=== PATIENT | female | born 1985 | race Caucasian/White ===

== ENCOUNTER 2020-08-16 09:28 | Outpatient (REF) | payer BC, SELFPAY ==
--- NOTE | ~2020-08-16 | CT_ITS ---
EXAMINATION: CT HEAD WITHOUT CONTRAST CLINICAL INFORMATION: Headache COMPARISON: CT brain 05/27/2017 TECHNIQUE: Contiguous axial imaging was performed from the skull base to vertex without intravenous administration of contrast. This CT examination was performed using dose optimization techniques as appropriate, variously including the following: *Automated exposure control *Adjustment of mA and/or kV according to patient size (this includes techniques or standardized protocols for targeted exams where dose is matched to indication/reason for exam; i.e. extremities or head) *Use of iterative reconstruction technique DLP: 734 mGy-cm FINDINGS: There is no evidence of acute intracranial hemorrhage or territorial infarction. No abnormal mass effect or midline shift is seen. Hand to white matter differentiation is well preserved. No extra-axial fluid collections are identified. The ventricles are normal in size. There is no abnormal attenuation within the brain parenchyma. The osseous structures and soft tissues are normal. The mastoid air cells and visualized portions of the paranasal sinuses are well aerated. CT/CT head/brain wo con IMPRESSION: No acute intracranial process seen.
== END 2020-08-16 09:29 | disposition home or self-care (01) ==
LOC: HO.CT 09:28
PROVIDERS: PCP Nurse Practitioner Family; Visit Provider Nurse Practitioner Family
DX: H53.8 Other visual disturbances (principal); R51.9 Headache, unspecified; Z82.49 Family history of ischemic heart disease and other diseases of the circulatory system
CPT/HCPCS: 70450

== ENCOUNTER 2021-02-15 11:58 | Outpatient (REF) | payer BC, SELFPAY ==
[2021-02-15 13:46] LABS: MANUAL DIFF FLAG NO
[2021-02-15 13:48] LABS: Basophils Absolute Auto 0.1 X10*3/uL (0.0-0.2); Basophils Percent Auto 0.5 % (0-2); Eosinophils Absolute Auto 0.3 X10*3/uL (0.0-0.4); Eosinophils Percent Auto 3.2 % (0-4); Hematocrit 40.1 % (37.0-47.0); Hemoglobin 13.7 g/dl (12.0-16.0); Imm Gran Abs Auto 0.02 X10*3/uL (0.00-0.03); Imm Gran Pct Auto 0.2 % (0.0-0.4); Lymphocytes Absolute Auto 2.2 X10*3/uL (1.2-4.9); Mean Corpuscular HGB Conc 34.2 g/dl (31.0-35.0); Mean Corpuscular Hemoglobin 30.3 pg (27.0-33.0); Mean Corpuscular Volume 88.7 fL (80.0-98.0); Mean Platelet Volume 9.9 fL (9.4-12.3); Monocytes Absolute Auto 0.7 X10*3/uL (0.1-1.2); Monocytes Percent Auto 6.4 % (2-11); Neutrophils Absolute Auto 6.83 x10*3/uL (2.0-8.3); Neutrophils Percent Auto 67.7 % (45-73); Platelet Count 356 X10*3/uL (160-400); Red Blood Count 4.52 X10*6/uL (4.20-5.50); Red Cell Distribution Width 11.9 % (11.0-16.0); White Blood Count 10.1 X10*3/uL (4.8-10.8)
[2021-02-15 14:30] LABS: Alanine Aminotransferase 22 U/L (0-31); Albumin Level 4.3 g/dL (3.5-5.0); Alkaline Phosphatase 64 U/L (39-117); Anion Gap 11 (12-20); Aspartate Amino Transferase 17 U/L (5-31); Bilirubin Total 0.2 mg/dL (0.0-1.0); Blood Urea Nitrogen 11 mg/dL (9-16); Carbon Dioxide 26 mmol/L (22-29); Chloride 106 mmol/L (96-108); Cholesterol 186 mg/dL; Estimated Glomerular Filt Rate > 60; Glucose Fasting 92 mg/dL (60-99); HDL Cholesterol 46 mg/dL; LDL Cholesterol Calculated 115 mg/dl; Potassium 4.3 mmol/L (3.3-5.1); Sodium 139 mmol/L (135-145); Triglycerides 129 mg/dL
[2021-02-15 14:51] LABS: TSH reflex Free T4 1.45 uIU/mL (0.32-4.0)
[2021-02-16 09:17] LABS: Lyme Abs Screen <0.90 index
[2021-02-20 12:46] LABS: Vitamin D 25-OH, D2 <4 ng/mL; Vitamin D 25-OH, D3 21 ng/mL; Vitamin D 25-OH, Total 21 ng/mL (30-100)
== END 2021-02-15 11:59 | disposition home or self-care (01) ==
LOC: HO.WFDLDS 11:58
PROVIDERS: PCP Nurse Practitioner Family; Visit Provider Nurse Practitioner Family
DX: Z00.00 Encounter for general adult medical examination without abnormal findings (principal); T14.8XXA Other injury of unspecified body region, initial encounter; W57.XXXA Bitten or stung by nonvenomous insect and other nonvenomous arthropods, initial encounter
CPT/HCPCS: 36415; 80053; 80061; 82306; 84443; 85025; 86617; 86618

== ENCOUNTER 2021-03-06 11:37 | Outpatient (REF) | payer BC, SELFPAY ==
[2021-03-06 15:01] LABS: Appearance Urine CLEAR; Color Urine YELLOW; Glucose Urine UA NEG (NEG); Leukocyte Esterase Urine 3+ (NEG); Nitrite Urine NEG (NEG); PH 8.5 (5.0-8.0); Specific Gravity - Urine >= 1.030 (1.005-1.025); Urine Blood 3+ (NEG); Urine Ketones NEG (NEG)
[2021-03-06 15:02] LABS: Urine Protein 1+ MG/DL (NEG-TRACE)
[2021-03-06 15:05] LABS: Bacteria Urine 1+ /LPF; Squamous Epithelial Cell Urine 1+ /LPF
[2021-03-07 09:21] LABS: BV Int Neg Control Negative (Negative); BV Int Pos Control Positive (Positive)
== END 2021-03-06 11:38 | disposition home or self-care (01) ==
LOC: HO.WFDLDS 11:37
PROVIDERS: Visit Provider Nurse Practitioner Family
DX: R30.0 Dysuria (principal)
CPT/HCPCS: 81001; 87086; 87480; 87510; 87660

== ENCOUNTER 2021-03-16 10:35 | Outpatient (REF) | payer BC, SELFPAY ==
--- NOTE | ~2021-03-16 | US_ITS ---
EXAMINATION: US PELVIS CLINICAL INFORMATION: Pelvic and perineal pain. COMPARISON: None TECHNIQUE: Ultrasound of the pelvis is performed using both transabdominal and transvaginal transducers along with Doppler. Transvaginal imaging is performed due to inadequate visualization transabdominally. FINDINGS: Uterus: The uterus is anteverted, anteflexed and measures 7.9 cm in length, 3.2 cm in AP and 4.9 cm in transverse dimension. The double wall endometrial thickness is 0.86 cm. The uterus is smooth in contour and has normal myometrial echogenicity. No visible fibroid. Adnexa: Both ovaries are visualized. There is normal color flow to the adnexa. There is no ovarian torsion. There is no pelvic ascites or fluid collection. Right ovary measures 2.97 x 2.12 x 3.44 cm. Volume 11.34 mL Left ovary measures 3.07 x 1.29 x 2.97 cm. Volume 6.16 mL There is no free fluid in the cul-de-sac. US/US pelvic and transvaginal IMPRESSION: Unremarkable uterus and ovaries.
== END 2021-03-16 10:36 | disposition home or self-care (01) ==
LOC: HO.HMGCX 10:35
PROVIDERS: PCP Nurse Practitioner Family; Visit Provider Nurse Practitioner Family
DX: R10.2 Pelvic and perineal pain (principal)
CPT/HCPCS: 76830; 76856

== ENCOUNTER 2022-07-20 12:19 | Outpatient (REF) | payer BC, SELFPAY ==
[2022-07-20 13:36] LABS: MANUAL DIFF FLAG NO
[2022-07-20 13:40] LABS: Basophils Percent Auto 0.4 % (0-2); Eosinophils Absolute Auto 0.2 X10*3/uL (0.0-0.4); Eosinophils Percent Auto 1.7 % (0-4); Hematocrit 41.4 % (37.0-47.0); Hemoglobin 14.2 g/dl (12.0-16.0); Imm Gran Abs Auto 0.03 X10*3/uL (0.00-0.03); Imm Gran Pct Auto 0.3 % (0.0-0.4); Lymphocytes Absolute Auto 2.3 X10*3/uL (1.2-4.9); Mean Corpuscular HGB Conc 34.3 g/dl (31.0-35.0); Mean Corpuscular Hemoglobin 29.7 pg (27.0-33.0); Mean Corpuscular Volume 86.6 fL (80.0-98.0); Mean Platelet Volume 9.5 fL (9.4-12.3); Monocytes Absolute Auto 0.7 X10*3/uL (0.1-1.2); Monocytes Percent Auto 7.6 % (2-11); Neutrophils Absolute Auto 6.1 x10*3/uL (2.0-8.3); Platelet Count 357 X10*3/uL (160-400); Red Blood Count 4.78 X10*6/uL (4.20-5.50); White Blood Count 9.3 X10*3/uL (4.8-10.8)
[2022-07-20 14:12] LABS: Alanine Aminotransferase 66 U/L (0-31); Albumin Level 4.4 g/dL (3.5-5.0); Alkaline Phosphatase 68 U/L (39-117); Anion Gap 13 (12-20); Aspartate Amino Transferase 40 U/L (5-31); Bilirubin Total 0.7 mg/dL (0.0-1.0); Blood Urea Nitrogen 12 mg/dL (9-16); C Reactive Protein 1.13 mg/dL (< or = 0.50); Calcium 9.2 mg/dL (8.4-10.2); Carbon Dioxide 24 mmol/L (22-29); Chloride 106 mmol/L (96-108); Cholesterol 245 mg/dL; Estimated Glomerular Filt Rate > 60; Glucose Fasting 89 mg/dL (60-99); HDL Cholesterol 39 mg/dL; LDL Cholesterol Calculated 174 mg/dl; Potassium 4.1 mmol/L (3.3-5.1); Sodium 139 mmol/L (135-145); Triglycerides 162 mg/dL
[2022-07-20 14:28] LABS: TSH reflex Free T4 1.92 uIU/mL (0.32-4.0)
[2022-07-20 14:33] LABS: Erythrocyte Sedimentation Rate 14 MM/HR (0-20)
[2022-07-23 22:42] LABS: Transglutaminase Ab IgG 3.8 U/mL; Transglutaminase IgA <1.0 U/mL
[2022-07-26 14:47] LABS: Endomysial IgA Antibody Negative (Negative)
== END 2022-07-20 12:20 | disposition home or self-care (01) ==
LOC: HO.WFDLDS 12:19
PROVIDERS: Visit Provider Nurse Practitioner Family
DX: R19.8 Other specified symptoms and signs involving the digestive system and abdomen (principal); K21.9 Gastro-esophageal reflux disease without esophagitis; E78.5 Hyperlipidemia, unspecified; E66.9 Obesity, unspecified
CPT/HCPCS: 36415; 80053; 80061; 84443; 85025; 85652; 86140; 86231; 86364

== ENCOUNTER 2022-08-02 08:33 | Outpatient (REF) | payer BC, SELFPAY ==
--- NOTE | ~2022-08-02 | US_ITS ---
EXAMINATION: US ABDOMEN COMPLETE CLINICAL INFORMATION: Abnormal levels of other serum enzymes. COMPARISON: None available. TECHNIQUE: Real-time imaging of the abdominal viscera. FINDINGS: PANCREAS: Normal. ABDOMINAL AORTA: The proximal, mid, and distal segments are normal in caliber. INFERIOR VENA CAVA: Visualized portions are normal. LIVER: The liver is normal in size. The liver contour is normal. Increased parenchymal echogenicity. There is a 1.5 x 1.1 x 1.6 cm hypoechoic slightly heterogeneous lesion in the right hepatic lobe. There is no intrahepatic biliary duct dilatation seen. GALLBLADDER: Normal. The gallbladder is physiologically distended without evidence of stones, sludge, polyps, wall thickening or pericholecystic fluid. COMMON BILE DUCT: Normal in caliber measuring 0.3 cm in diameter. RIGHT KIDNEY: Normal. No hydronephrosis. No renal calculi or focal parenchymal lesions. The kidney measures 12.0 cm in maximum dimension. LEFT KIDNEY: Normal. No hydronephrosis. No renal calculi or focal parenchymal lesions. The kidney measures 11.8 cm in maximum dimension. SPLEEN: Mild splenomegaly measuring 13.3 cm in length. FREE FLUID: None. US/US abdomen complete IMPRESSION: 1. Increased hepatic parenchymal echogenicity is nonspecific, but most commonly on the basis of diffuse hepatocellular disease such as hepatic steatosis. 2. There is a 1.6 cm hypoechoic lesion in the right hepatic lobe which is indeterminate. Recommend further evaluation with a dynamic liver MRI with and without intravenous contrast. 3. Mild splenomegaly.
== END 2022-08-02 08:34 | disposition home or self-care (01) ==
LOC: HO.HMGCX 08:33
PROVIDERS: PCP Nurse Practitioner Family; Visit Provider Nurse Practitioner Family
DX: R74.8 Abnormal levels of other serum enzymes (principal)
CPT/HCPCS: 76700

== ENCOUNTER → 2022-08-10 15:34 | Outpatient (BNVA) | payer BC, SELFPAY | PROVIDERS: PCP Nurse Practitioner Family; Visit Provider Nurse Practitioner Family | DX: Z13.89 Encounter for screening for other disorder (principal) ==

== ENCOUNTER 2022-09-07 14:08 | Outpatient (REF) | payer BC, SELFPAY ==
--- NOTE | ~2022-09-07 | MR_ITS ---
EXAMINATION: MR ABDOMEN WITHOUT AND WITH CONTRAST CLINICAL INFORMATION: Liver disease COMPARISON: Abdominal ultrasound 08/02/2022 TECHNIQUE: MRI of the abdomen before and after the IV administration of 10 mL of Gadavist was obtained using routine sequences. FINDINGS: LUNG BASES: The visualized lung bases are unremarkable. KIDNEYS AND URETERS: Unremarkable. GALLBLADDER: Unremarkable. LIVER AND BILIARY TREE: Liver is enlarged measuring 19.9 cm in span. Loss of signal on opposed phase imaging compatible with hepatic steatosis. The suspected liver lesion in the right hepatic lobe corresponds to an area of focal fatty sparing. No suspicious liver lesion. No intra or extrahepatic biliary duct dilatation. PANCREAS: Unremarkable SPLEEN: Unremarkable ADRENAL GLANDS: Unremarkable GASTROINTESTINAL TRACT: Unremarkable. LYMPH NODES: No lymphadenopathy. VASCULAR: Unremarkable ABDOMINAL WALL: Unremarkable. OSSEOUS STRUCTURES: Unremarkable. MR/MR abdomen wo/w con IMPRESSION: 1. The suspected liver lesion in the right hepatic lobe corresponds to an area of focal fatty sparing. No suspicious liver lesion. 2. Hepatomegaly and hepatic steatosis.
== END 2022-09-07 14:09 | disposition home or self-care (01) ==
LOC: HO.MRI 14:08
PROVIDERS: PCP Nurse Practitioner Family; Visit Provider Nurse Practitioner Family
DX: K76.9 Liver disease, unspecified (principal)
CPT/HCPCS: 74183; A9585

== ENCOUNTER 2023-01-01 10:49 | Outpatient (AMB) | payer BC, SELFPAY ==
--- NOTE | 2023-01-01 10:50 | A.OFFPC_ITS ---
Intake Visit Reasons: Telehealth follow up Allergies No Known Allergies Allergy (Verified 01/01/23 10:50) environmental allergies Allergy (Unknown, Uncoded 01/01/23 10:50) seasonal Tobacco use date assessed: 01/01/23 Dental Screening Dental Screen Date: 01/01/23 Did you have a dental visit in the last 12 months?: Yes Did you have a dental problem in the last 6 months where you did not have access to dental care?: No Was dental information given to patient?: Patient has dentist HPI Telehealth follow up HPI Details Dyslipidemia: Pt's last cholesterol panel was elevated. She would like to work on her diet before starting a medication. Will repeat labs in the near future. Denies chest pain, shortness of breath, and dizziness. Hx of elevated liver enzymes, will repeat labs. Pt is working on losing weight. [facility] Medical History (Updated 01/01/23 @ 11:03 by Colt Rodriguez [facility]) Fatty liver Family History Father Substance use disorder Mother No problems noted. Social History Housing: House Alcohol intake: current Alcohol intake frequency: holidays/special occasions only Patient Tobacco Use Status: Former Tobacco user Years Smoked: 5-6 years ago e-Cigarette/Vaping Use: Currently Using Second Hand Smoke Exposure: No Current occupational status: employed Current occupation: [employer] Current occupational exposures/hazards: No Cognitive needs: No Hearing needs: No Vision needs: No Questionnaire Thrive Questionnaire Date Thrive assessed: 09/27/20 KENNY-7 AMB Questionnaire KENNY-7 Date KENNY - 7 assessed: 12/19/21 Source: Developed by Drs. Sanjeev Alas, Betty Riggs, Jose Alebrto Jaramillo and colleagues, with an educational kyara from [employer]. Review of Systems Const Reports as per HPI Physical exam (Primary Care) Tobacco/Smoking Status: Tobacco use Status Tobacco use date assessed 01/01/23 01/01/23 10:50 Patient Tobacco Use Status Former Tobacco user 01/01/23 10:50 e-Cigarette/Vaping Use Currently Using 01/01/23 10:50 Thrive Assessment: Date of Thrive Assessment Date Thrive assessed 09/27/20 01/01/23 10:50 Const General: cooperative Orientation/consciousness: patient oriented x3 Neuro General: patient oriented x3 Psych Appearance: grossly normal Mental Status: mental status grossly normal Speech and movement: Clear speech present Affect: normal affect Attitude: cooperative Thought process: Normal thought process present Thought content: Normal thought content present Insight: Good insight present (Psych) Judgement: Good judgement present (Psych) Telehealth Telehealth Location of provider rendering services: practice address Location of patient: address on file Patient Identification confirmed using: Name, : Yes Telehealth method: video Patient verbally consented to treatment: Yes Patient verbally consented to billing insurance company: Yes Patient informed of any privacy concerns related to visit: Yes Minutes spent on Phone/Video with Pt.: 10 Assessment and Plan Assessment & Plan (1) Elevated liver enzymes: Code(s): R74.8 - Abnormal levels of other serum enzymes Plan: repeating labs (2) Obesity: Code(s): E66.9 - Obesity, unspecified (3) Dyslipidemia: Code(s): E78.5 - Hyperlipidemia, unspecified Plan: repeating labs Plan The patient agreed to the use of a biomedical equipment technician for this encounter. Scribed for SADIQ Benavidez- by Danielle Venegas biomedical equipment technician, on 01/01/2023 at 10:55 EST. Orders: Orders Comprehensive [place]. Panel Fast Today E66.9 - Obesity, unspecified, E78.5 - Hyperlipidemia, unspecified, R74.8 - Abnormal levels of other serum enzymes Lipid Panel Today E66.9 - Obesity, unspecified, E78.5 - Hyperlipidemia, unspecified, R74.8 - Abnormal levels of other serum enzymes Complete Blood Count Auto Diff Today E66.9 - Obesity, unspecified, E78.5 - Hyperlipidemia, unspecified, R74.8 - Abnormal levels of other serum enzymes TSH reflex Free T4 Today E66.9 - Obesity, unspecified, E78.5 - Hyperlipidemia, unspecified, R74.8 - Abnormal levels of other serum enzymes UA CC w/rflx Micro + Cult Today E66.9 - Obesity, unspecified, E78.5 - Hyperlipidemia, unspecified, R74.8 - Abnormal levels of other serum enzymes Tick-borne Disease Molecular Today W57.XXXA - Bitten or stung by nonvenomous insect and other nonvenomous arthropods, initial encounter Coding Level of Care Code Tele Est Pt Level 3 (19672) Diagnoses Elevated liver enzymes R74.8 Obesity E66.9 Dyslipidemia E78.5
== END 2023-01-01 12:04 | disposition home or self-care (01) ==
LOC: HO.HMGC 10:49
PROVIDERS: PCP Nurse Practitioner Family; Visit Provider Nurse Practitioner Family
DX: R74.8 Abnormal levels of other serum enzymes (principal); E66.9 Obesity, unspecified; E78.5 Hyperlipidemia, unspecified
CPT/HCPCS: 99213

== ENCOUNTER 2023-06-03 11:33 | Outpatient (AMB) | payer BC, SELFPAY ==
[2023-06-03 11:34] VITALS: BP 130/82; PULSE 102; O2SAT 98
--- NOTE | 2023-06-03 11:34 | MHC.OFFWIV ---
Intake Vital Signs 06/03/23 11:34 Height 5 ft 4 in Intake Visit Reasons: Follow up complex discuss some concerns Intake Note: pt is here for follow up to discuss Patient Tobacco Use Status: Former Tobacco user Allergies No Known Allergies Allergy (Verified 06/03/23 11:35) environmental allergies Allergy (Unknown, Uncoded 01/01/23 10:50) seasonal Do you need a note to return to daycare/school/sports/work: No PFSH Medical History (Updated 01/01/23 @ 11:03 by Colt Rodriguez [facility]) Fatty liver Family History Father Substance use disorder Mother No problems noted. Social History Housing: House Alcohol intake: current Alcohol intake frequency: holidays/special occasions only Patient Tobacco Use Status: Former Tobacco user Years Smoked: 5-6 years ago e-Cigarette/Vaping Use: Currently Using Second Hand Smoke Exposure: No Current occupational status: employed Current occupation: [employer] Current occupational exposures/hazards: No Cognitive needs: No Hearing needs: No Vision needs: No Coding
--- NOTE | 2023-06-03 11:43 | A.OFFPC_ITS ---
Vital Signs 06/03/23 11:34 Height 5 ft 4 in BMI Reason not done Patient refused/unable BP 130/82 Blood Pressure Location Lt brachial Position Sitting Pulse 102 H Pulse Source Pulse Oximeter Pulse Oximetry (%) 98 Oxygen Delivery Method Room Air Intake Visit Reasons: Follow up complex discuss some concerns Intake Note: pt is here for follow up to discuss depression/anxiety/dizziness with position changes, patient states she had covid apr 2023 and feels like these are post covid related Allergies No Known Allergies Allergy (Verified 06/03/23 11:42) environmental allergies Allergy (Unknown, Uncoded 01/01/23 10:50) seasonal Medication List - Last Reconciled 06/03/23 by KELLIE Uribe lorazepam 0.5 mg PO BID PRN 30 days meclizine 25 mg PO BID PRN 15 days ondansetron 8 mg PO Q12H PRN 15 days vit [id number] 27 mg iron- 800 mcg ( Vitamin) 1 tab PO DAILY sertraline 100 mg PO DAILY 90 days tretinoin 0.025% 1 appl topical BEDTIME valacyclovir 2,000 mg (2 x 1 gram) PO Q12H Tobacco use date assessed: 06/03/23 Dental Screening Dental Screen Date: 06/03/23 Did you have a dental visit in the last 12 months?: Yes Did you have a dental problem in the last 6 months where you did not have access to dental care?: No Was dental information given to patient?: Patient has dentist HPI Follow up complex discuss some concerns HPI Details Pt c/o dizziness. She reports that this occurs with position changes or turning her head. Pt has had this since having COVID recently. This does not appear to be orthostatic. Cerumen noted to left ear on exam. Will flush in office today. Denies fever, chills, and chest pain. Encouraged pt to have labs drawn. [facility] Medical History Fatty liver Family History Father Substance use disorder Mother No problems noted. Social History Housing: House Alcohol intake: current Alcohol intake frequency: holidays/special occasions only Patient Tobacco Use Status: Former Tobacco user Years Smoked: 5-6 years ago e-Cigarette/Vaping Use: Currently Using Second Hand Smoke Exposure: No Current occupational status: employed Current occupation: [employer] Current occupational exposures/hazards: No Cognitive needs: No Hearing needs: No Vision needs: No Questionnaire PHQ-9 Over the last 2 weeks, how often have you been bothered by any of the following problems? 1. Little interest or pleasure in doing things: several days 2. Feeling down, depressed, or hopeless: several days 3. Trouble falling or staying asleep, or sleeping too much: several days 4. Feeling tired or having little energy: more than half the days 5. Poor appetite or overeating: several days 6. Feeling bad about yourself - or that you are a failure or have let yourself or your family down: not at all 7. Trouble concentrating on things, such as reading the newspaper or watching television: not at all 8. Moving or speaking so slowly that other people could have noticed. Or the opposite - being so fidgety or restless that you have been moving around a lot more than usual: not at all 9. Thoughts that you would be better off or of hurting yourself in some way: not at all Total score: 6 Depression Screening Interpretation: Negative Depression Screening Done: Yes 79156 - PHQ-9 Billing: Yes Source: Developed by Drs. Sanjeev Alas, Betty Riggs, Jose Alberto Jaramillo and colleagues, with an educational kyara from [employer]. Thrive Questionnaire Date Thrive assessed: 06/03/23 I am a: Patient What is your living situation today?: I have a steady place to live Within the past 12 months, did the food you bought not last and you didn't have the money to get more?: Never true Within the past 12 months, did you worry whether your food would run out before you got money to buy more?: Never true Do you have trouble paying for medicines?: No Do you have trouble getting transportation to medical appointments?: No Do you have trouble paying your heating and electricity bill?: No Do you have trouble taking care of your child, family member or friend?: No Do you have trouble with day-to-day activities such as bathing, preparing meals, shopping, managing finances, etc.?: No Are you currently unemployed and looking for a job?: No Are you interested in more education?: No Please select the resources that you would like help with: None Currently or been in a relationship where the following occur: no concerns reported THRIVE Score: 0 KENNY-7 AMB Questionnaire KENNY-7 Date KENNY - 7 assessed: 06/03/23 Feeling nervous, anxious, or on edge: 1 = Several days Not being able to stop or control worryin = Several days Worrying too much about different things: 1 = Several days Trouble relaxin = Not at all Being so restless that it is hard to sit still: 0 = Not at all Becoming easily annoyed or irritable: 0 = Not at all Feeling afraid as if something awful might happen: 1 = Several days Total KENNY-7 score (0-4 normal; 5-9 mild; 10-14 moderate; 15-21 severe): 4 Source: Developed by Drs. Sanjeev Alas, Betty Riggs, Jose Alberto Jaramillo and colleagues, with an educational kyara from [employer]. KENNY-7 Assessment Billing KENNY-7 Assessment Tool: KENNY-7 Assessment 06388 Review of Systems Const Reports as per HPI Physical exam (Primary Care) Vital Signs: Last Vital Signs Pulse 102 H 06/03/23 11:34 BP 130/82 06/03/23 11:34 Pulse Ox 98 06/03/23 11:34 Oxygen Delivery Method Room Air 06/03/23 11:34 Tobacco/Smoking Status: Tobacco use Status Tobacco use date assessed 06/03/23 06/03/23 11:47 Patient Tobacco Use Status Former Tobacco user 06/03/23 11:47 e-Cigarette/Vaping Use Currently Using 06/03/23 11:47 PHQ-9: PHQ-9 Score PHQ-9: Total score 6 06/03/23 11:49 Depression Screening Interpretation: Negative Thrive Assessment: Date of Thrive Assessment Date Thrive assessed 06/03/23 06/03/23 11:49 Currently or been in a relationship where the following occur: no concerns reported Const General: cooperative Orientation/consciousness: patient oriented x3 HENMT Other: cerumen noted to left ear, after ear lavage TM easily seen Resp Effort & Inspection: normal respiratory effort Auscultation: clear to auscultation bilaterally Cardio Rate: regular rate Rhythm: regular rhythm Heart sounds: S1 normal heart sound present and S2 normal heart sound present Neuro Other: - arielle hallpike General: patient oriented x3 and CN's II-XI intact bilaterally Psych Appearance: grossly normal Mental Status: mental status grossly normal Speech and movement: Normal speech and movement present Affect: normal affect Attitude: cooperative Thought process: Normal thought process present Thought content: Normal thought content present Insight: Good insight present (Psych) Judgement: Good judgement present (Psych) Office Procedures Cerumen Removal From which ear canal was the cerumen removed: left Removal: irrigation Notes: patient tolerated procedure well and no complications [id number] Irrigation/Lavage Assessment and Plan Assessment & Plan (1) Vertigo: Code(s): R42 - Dizziness and giddiness Plan: meclizine and prednisone sent. pt will contact me with further or worsening symptoms (2) Cerumen impaction: Code(s): H61.20 - Impacted cerumen, unspecified ear Plan: flushed today Plan The patient agreed to the use of a medical communication specialist for this encounter. Scribed for SADIQ Benavidez-BC by Danielle Venegas medical communication specialist, on 06/03/2023 at 11:55 EST. Medications: New prednisone 50 mg PO DAILY 5 days 5 tabs 0RF Refilled ondansetron 8 mg PO Q12H 15 days PRN 30 tabs 0RF nausea and vomiting meclizine 25 mg PO BID 15 days PRN 30 tabs 0RF dizziness Coding Level of Care Code Est Pt Level 3 (22563) Diagnoses Vertigo R42 Cerumen impaction H61.20 CPT Codes Office Procedure - CPT: 05051-Qkm Irrigation/Lavage ([id number]) Additional Codes KENNY-7 Assessment Billing - KENNY-7 Assessment Tool: KENNY-7 Assessment 75354 ([id number])
== END 2023-06-03 12:30 | disposition home or self-care (01) ==
PROVIDERS: PCP Nurse Practitioner Family; Visit Provider Nurse Practitioner Family
DX: R42 Dizziness and giddiness (principal); H61.22 Impacted cerumen, left ear
CPT/HCPCS: 69209; 99213

== ENCOUNTER 2023-06-25 13:11 | Outpatient (AMB) | payer BC, SELFPAY ==
--- NOTE | 2023-06-25 13:19 | MHC.OFFWIV ---
Intake Vital Signs 06/25/23 13:20 Height 5 ft 4 in BMI Reason not done Patient refused/unable BP 126/80 Blood Pressure Location Lt brachial Position Sitting Pulse 91 Pulse Source Pulse Oximeter Temp 98.0 F Temp Source Temporal Artery Scan Pulse Oximetry (%) 97 Oxygen Delivery Method Room Air Intake Visit Reasons: EP ?Upper Respiratory Intake Note: pt is here today for upper respiratory started 1 week ago Patient Tobacco Use Status: Former Tobacco user Allergies No Known Allergies Allergy (Verified 06/25/23 13:20) environmental allergies Allergy (Unknown, Uncoded 01/01/23 10:50) seasonal Do you need a note to return to daycare/school/sports/work: No HPI HPI Comments History of Present Illness Details Patient is a 37-year-old female in today for sick visit. Patient states that over the past week she has developed symptoms sore throat cough headache, sinus congestion, hoarseness. Patient states she has a lot of mucus pooling the back her throat, and feels like the mucus is traveling down into her chest. Denies chest pain, shortness a breath, dizziness, numbness, nausea, vomiting, diarrhea, fever. [facility] Medical History Fatty liver Family History Father Substance use disorder Mother No problems noted. Social History Housing: House Alcohol intake: current Alcohol intake frequency: holidays/special occasions only Patient Tobacco Use Status: Former Tobacco user Years Smoked: 5-6 years ago e-Cigarette/Vaping Use: Currently Using Second Hand Smoke Exposure: No Current occupational status: employed Current occupation: [employer] Current occupational exposures/hazards: No Cognitive needs: No Hearing needs: No Vision needs: No Review of Systems Const All systems reviewed & are unremarkable except as noted in HPI and below ENT Reports nasal congestion and Reports sore throat Resp Reports change in phlegm color, Reports chest congestion and Reports cough Physical Exam Vital Signs: Last Vital Signs Temp 98.0 F 06/25/23 13:20 Pulse 91 06/25/23 13:20 BP 126/80 06/25/23 13:20 Pulse Ox 97 06/25/23 13:20 Oxygen Delivery Method Room Air 06/25/23 13:20 Vital signs reviewed stable Const Other: Appearance: Alert.? Oriented X3.? No acute distress.? Head: Normocephalic, atraumatic ENT: Pharynx erythema. Neck: Normal inspection.? Neck supple.? CVS: Normal heart rate and rhythm.? Pulses normal.? Respiratory: No respiratory distress.? Rhonchi RLL. Neuro: Oriented X 3.? No motor deficit.? No sensory deficit. CN 2-12 intact Assessment & Plan Assessment & Plan (1) PNA (pneumonia): Comment: Patient had chest x-ray in office will also get CMP and CBC drawn. Will get back to patient with chest x-ray results. Patient has been having symptoms for over week, will give coverage with doxycycline. Patient has been educated on the side effects of these medication. Code(s): J18.9 - Pneumonia, unspecified organism Qualifiers: Pneumonia type: due to unspecified organism Laterality: right Lung location: lower lobe of lung Qualified Code(s): J18.9 - Pneumonia, unspecified organism Plan: Take your medications as prescribed. If you were prescribed antibiotics today, it is important that you take your medication to their entirety, do not skip any doses, do not finish them early. Follow-up with your primary care provider this week. Return to the emergency department with new or worsening symptoms. Such as fevers, chills, chest pain, shortness of breath, nausea, vomiting, dizziness, headache, vision changes, lethargy In case of emergency call 911 Plan Follow-up with PCP. Orders: Orders SARS-CoV2/FLU/RSV Today J06.9 - Acute upper respiratory infection, unspecified XR chest 2V Today R06.02 - Shortness of breath Medications: New doxycycline hyclate 100 mg PO BID 14 caps 0RF Coding Level of Care Code Est Pt Level 3 (04651) Diagnoses Pneumonia of right lower lobe due to infectious organism J18.9 Pneumonia type: due to unspecified organism Laterality: right Lung location: lower lobe of lung Time Spent (min) 24
[2023-06-25 13:20] VITALS: BP 126/80; PULSE 91; TEMP 36.7; O2SAT 97
== END 2023-06-25 14:50 | disposition home or self-care (01) ==
PROVIDERS: PCP Nurse Practitioner Family; Visit Provider Nurse Practitioner Primary Care
DX: J18.9 Pneumonia, unspecified organism (principal)
CPT/HCPCS: 99213

== ENCOUNTER 2023-06-25 13:57 | Outpatient (REF) | payer BC, SELFPAY ==
--- NOTE | ~2023-06-25 | XR_ITS ---
EXAMINATION: XR CHEST CLINICAL INFORMATION: Shortness of breath COMPARISON: 12/30/2018 TECHNIQUE: 2 views of the chest were obtained. FINDINGS: Likely right pericardial fat pad. No significant abnormality is noted involving the heart, lungs, mediastinum, bony thorax or soft tissues. XR/XR chest 2V IMPRESSION: No acute cardiopulmonary disease.
[2023-06-25 16:07] LABS: MANUAL DIFF FLAG NO
[2023-06-25 16:38] LABS: Basophils Absolute Auto 0.1 X10*3/uL (0.0-0.2); Basophils Percent Auto 0.4 % (0-2); Eosinophils Absolute Auto 0.2 X10*3/uL (0.0-0.4); Eosinophils Percent Auto 1.1 % (0-4); Hematocrit 39.6 % (37.0-47.0); Hemoglobin 13.4 g/dl (12.0-16.0); Imm Gran Abs Auto 0.07 X10*3/uL (0.00-0.03); Imm Gran Pct Auto 0.5 % (0.0-0.4); Lymphocytes Absolute Auto 2.6 X10*3/uL (1.2-4.9); Lymphocytes Percent Auto 19.4 % (20-40); Mean Corpuscular HGB Conc 33.8 g/dl (31.0-35.0); Mean Corpuscular Hemoglobin 29.6 pg (27.0-33.0); Mean Corpuscular Volume 87.6 fL (80.0-98.0); Mean Platelet Volume 9.5 fL (9.4-12.3); Monocytes Absolute Auto 0.9 X10*3/uL (0.1-1.2); Monocytes Percent Auto 6.4 % (2-11); Neutrophils Absolute Auto 9.6 x10*3/uL (2.0-8.3); Neutrophils Percent Auto 72.2 % (45-73); Platelet Count 397 X10*3/uL (160-400); Red Blood Count 4.52 X10*6/uL (4.20-5.50); Red Cell Distribution Width 11.9 % (11.0-16.0); White Blood Count 13.3 X10*3/uL (4.8-10.8)
[2023-06-25 16:55] LABS: Alanine Aminotransferase 48 U/L (0-31); Albumin Level 4.4 g/dL (3.5-5.0); Alkaline Phosphatase 85 U/L (39-117); Anion Gap 11 (12-20); Aspartate Amino Transferase 27 U/L (5-31); Bilirubin Total 0.5 mg/dL (0.0-1.0); Blood Urea Nitrogen 10 mg/dL (9-16); Calcium 9.8 mg/dL (8.4-10.2); Carbon Dioxide 28 mmol/L (22-29); Chloride 102 mmol/L (96-108); Estimated Glomerular Filt Rate > 60; Glucose Fasting 89 mg/dL (60-99); Potassium 3.7 mmol/L (3.3-5.1); Sodium 137 mmol/L (135-145)
[2023-06-25 17:12] LABS: TSH reflex Free T4 2.51 uIU/mL (0.32-4.0)
[2023-06-25 18:05] LABS: Influenza A PCR NEGATIVE (Negative); Influenza B PCR NEGATIVE (Negative); Resp Syncy Virus RNA Qual PCR NEGATIVE (Negative); SARS COV2 PCR INHOUSE NEGATIVE (Negative)
[2023-06-28 20:13] LABS: A. Phagocytphilium DNA,RT-PCR NOT DETECTED (NOT DETECTED); Babesia Microti DNA, RT-PCR NOT DETECTED (NOT DETECTED); Borrelia Miyamotoi,DNA RT-PCR NOT DETECTED (NOT DETECTED); E.Chaffeensis DNA RT-PCR NOT DETECTED (NOT DETECTED); Lyme(Borrelia ssp)DNA RT-PCR NOT DETECTED (NOT DETECTED)
== END 2023-06-25 13:58 | disposition home or self-care (01) ==
LOC: HO.HMGCX 13:57
PROVIDERS: PCP Nurse Practitioner Family; Referring Provider Nurse Practitioner Primary Care; Visit Provider Nurse Practitioner Family
DX: Z11.52 Encounter for screening for COVID-19 (principal); Z20.822 Contact with and (suspected) exposure to COVID-19; R06.02 Shortness of breath; R74.8 Abnormal levels of other serum enzymes; E66.9 Obesity, unspecified; E78.5 Hyperlipidemia, unspecified; J06.9 Acute upper respiratory infection, unspecified; T14.8XXA Other injury of unspecified body region, initial encounter; W57.XXXA Bitten or stung by nonvenomous insect and other nonvenomous arthropods, initial encounter
CPT/HCPCS: 0241U; 36415; 71046; 80053; 84443; 85025; 87468; 87469; 87478; 87484; 87798

== ENCOUNTER 2023-12-02 13:45 | Outpatient (AMB) | payer BC, SELFPAY ==
--- NOTE | 2023-12-02 13:50 | A.OFFPC_ITS ---
Vital Signs 12/02/23 13:51 Height 5 ft 4 in BMI Reason not done Patient refused/unable BP 118/72 Blood Pressure Location Lt brachial Position Sitting Pulse 72 Pulse Source Pulse Oximeter Pulse Oximetry (%) 97 Oxygen Delivery Method Room Air Intake Visit Reasons: Annual PE Intake Note: pt is here for annual exam Allergies No Known Allergies Allergy (Verified 12/02/23 14:05) environmental allergies Allergy (Unknown, Uncoded 12/02/23 14:05) seasonal Medication List - Last Reconciled 12/02/23 by KELLIE Uribe lorazepam 0.5 mg PO BID PRN 30 days meclizine 25 mg PO BID PRN 15 days ondansetron 8 mg PO Q12H PRN 15 days vit no.[id number] 27 mg iron- 800 mcg ( Vitamin) 1 tab PO DAILY sertraline 100 mg PO DAILY 90 days tretinoin 0.025% 1 appl topical BEDTIME valacyclovir 2,000 mg (2 x 1 gram) PO Q12H Tobacco use date assessed: 06/03/23 Dental Screening Dental Screen Date: 06/03/23 HPI Annual PE HPI Details Pt is here for a PE. 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 Has a aerospace technician. [facility] Medical History Fatty liver Family History Father Substance use disorder Mother No problems noted. Social History Housing: House Alcohol intake: current Alcohol intake frequency: holidays/special occasions only Patient Tobacco Use Status: Former Tobacco user Years Smoked: 5-6 years ago e-Cigarette/Vaping Use: Currently Using Second Hand Smoke Exposure: No Current occupational status: employed Current occupation: [employer] Current occupational exposures/hazards: No Cognitive needs: No Hearing needs: No Vision needs: No Questionnaire PHQ-9 Over the last 2 weeks, how often have you been bothered by any of the following problems? 1. Little interest or pleasure in doing things: not at all 2. Feeling down, depressed, or hopeless: not at all 3. Trouble falling or staying asleep, or sleeping too much: several days 4. Feeling tired or having little energy: several days 5. Poor appetite or overeating: several days 6. Feeling bad about yourself - or that you are a failure or have let yourself or your family down: not at all 7. Trouble concentrating on things, such as reading the newspaper or watching television: not at all 8. Moving or speaking so slowly that other people could have noticed. Or the opposite - being so fidgety or restless that you have been moving around a lot more than usual: not at all 9. Thoughts that you would be better off or of hurting yourself in some way: not at all Total score: 3 Depression Screening Interpretation: Negative Depression Screening Done: Yes 54017 - PHQ-9 Billing: Yes Source: Developed by Drs. Sanjeev Alas, Betty Riggs, Jose Alberto Jaramillo and colleagues, with an educational kyara from [employer]. Thrive Questionnaire Date Thrive assessed: 12/02/23 I am a: Patient What is your living situation today?: I have a steady place to live Within the past 12 months, did the food you bought not last and you didn't have the money to get more?: Never true Within the past 12 months, did you worry whether your food would run out before you got money to buy more?: Never true Do you have trouble paying for medicines?: No Do you have trouble getting transportation to medical appointments?: No Do you have trouble paying your heating and electricity bill?: No Do you have trouble taking care of your child, family member or friend?: No Do you have trouble with day-to-day activities such as bathing, preparing meals, shopping, managing finances, etc.?: No Are you currently unemployed and looking for a job?: No Are you interested in more education?: No Please select the resources that you would like help with: None Currently or been in a relationship where the following occur: No concerns reported THRIVE Score: 0 AUDIT C Alcohol Use Questionnaire (AUDIT-C) 1. How often do you have a drink containing alcohol?: Monthly or less 2. How many drinks containing alcohol do you have on a typical day when you are drinking?: 1 or 2 3. How often do you have six or more drinks on one occasion?: Never Total Score: 1 Score Reviewed/Action Taken: Yes KENNY-7 AMB Questionnaire KENNY-7 Date KENNY - 7 assessed: 12/02/23 Feeling nervous, anxious, or on edge: 0 = Not at all Not being able to stop or control worryin = Several days Worrying too much about different things: 1 = Several days Trouble relaxin = Several days Being so restless that it is hard to sit still: 0 = Not at all Becoming easily annoyed or irritable: 0 = Not at all Feeling afraid as if something awful might happen: 1 = Several days Total KENNY-7 score (0-4 normal; 5-9 mild; 10-14 moderate; 15-21 severe): 4 Source: Developed by Drs. Sanjeev Alas, Betty Riggs, Jose Alberto Jaramillo and colleagues, with an educational kyara from [employer]. KENNY-7 Assessment Billing KENNY-7 Assessment Tool: KENNY-7 Assessment 00169 Review of Systems Const Denies chills and Denies fever(s) Eyes Denies blurry vision ENT Denies vertigo, Denies dizziness and Denies sore throat Card Denies chest pain at rest, Denies chest pain with activity, Denies diaphoresis, Denies dyspnea and Denies dyspnea on exertion Resp Denies cough, Denies dyspnea, Denies dyspnea on exertion and Denies wheezing GI Denies abdominal pain, Denies melena, Denies hematochezia, Denies constipation, Denies diarrhea and Denies loose stools Denies hematuria Musc Denies numbness and Denies tingling Skin/Breast Denies lesions Neuro Denies vertigo, Denies dizziness, Denies numbness and Denies tingling Psych Denies anxiety, Denies depression, Denies homicidal ideation, Denies suicidal ideation and Denies other (substance abuse) Aller/Immun Denies wheezing Physical exam (Primary Care) Vital Signs: Last Vital Signs Pulse 72 12/02/23 13:51 BP 118/72 12/02/23 13:51 Pulse Ox 97 12/02/23 13:51 Oxygen Delivery Method Room Air 12/02/23 13:51 Tobacco/Smoking Status: Tobacco use Status Tobacco use date assessed 06/03/23 12/02/23 13:52 Patient Tobacco Use Status Former Tobacco user 12/02/23 13:52 e-Cigarette/Vaping Use Currently Using 12/02/23 13:52 PHQ-9: PHQ-9 Score PHQ-9: Total score 3 12/02/23 14:05 Depression Screening Interpretation: Negative Thrive Assessment: Date of Thrive Assessment Date Thrive assessed 12/02/23 12/02/23 13:59 Currently or been in a relationship where the following occur: No concerns reported Const General: cooperative Nutritional Appearance: well nourished and obese Orientation/consciousness: patient oriented x3 HENMT Head: Yes normal to inspection, Yes normocephalic and Yes atraumatic Ears: TM's normal bilaterally Eyes General: appearance normal, both eyes and all related structures Alignment and Position: alignment normal and position normal Neck Neck: Yes normal visual inspection and Yes no lymphadenopathy Thyroid: Thyroid normal Resp Effort & Inspection: normal respiratory effort Auscultation: clear to auscultation bilaterally Cardio Rate: regular rate Rhythm: regular rhythm Heart sounds: S1 normal heart sound present, S2 normal heart sound present and no murmurs GI Palpation (GI): Soft to palpation and nontender Auscultation: normal bowel sounds Skin Rashes: no rashes Neuro General: patient oriented x3, moves all extremities, no focal motor deficits and deep tendon reflexes 2+ bilaterally Romberg Test: Negative Psych Appearance: grossly normal Mental Status: mental status grossly normal Speech and movement: Normal speech and movement present Affect: normal affect Attitude: cooperative Thought process: Normal thought process present Thought content: Normal thought content present Insight: Good insight present (Psych) Judgement: Good judgement present (Psych) Assessment and Plan Assessment & Plan (1) Physical exam: Code(s): Z. - Encounter for general adult medical examination without abnormal findings Plan: Labs ordered Plan The patient agreed to the use of a medical care evaluation specialist for this encounter. Scribed for KELLIE Benavidez by Danielle Venegas medical care evaluation specialist, on 12/02/2023 at 14:00 EST. Orders: Orders Complete Blood Count Auto Diff Today Z00.00 - Encounter for general adult medical examination without abnormal findings Comprehensive [place]. Panel Fast Today Z00.00 - Encounter for general adult medical examination without abnormal findings TSH reflex Free T4 Today Z00.00 - Encounter for general adult medical examination without abnormal findings UA CC w/rflx Micro + Cult Today Z00.00 - Encounter for general adult medical examination without abnormal findings Lipid Panel Today Z00.00 - Encounter for general adult medical examination without abnormal findings Coding Level of Care Code Est Pt Prev Care 18-39y(59470) Diagnoses Physical exam Z00.00 Additional Codes KENNY-7 Assessment Billing - KENNY-7 Assessment Tool: KENNY-7 Assessment 68760 ([id number])
[2023-12-02 13:51] VITALS: BP 118/72; PULSE 72; O2SAT 97
== END 2023-12-02 16:02 | disposition home or self-care (01) ==
PROVIDERS: PCP Nurse Practitioner Family; Visit Provider Nurse Practitioner Family
DX: Z00.00 Encounter for general adult medical examination without abnormal findings (principal)
CPT/HCPCS: 99395

== ENCOUNTER 2025-02-10 16:21 | Outpatient (AMB) | payer BC, SELFPAY ==
[2025-02-10 16:23] VITALS: BP 110/70; PULSE 95; RESP 16; TEMP 36.6; O2SAT 97; BMI 36.4
--- NOTE | 2025-02-10 16:23 | MHC.PC.OV ---
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 Accompanied by: Self / Same As Patient Allergies No Known Allergies Allergy (Verified 02/10/25 16:29) environmental allergies Allergy (Unknown, Uncoded 12/02/23 14:05) seasonal Medication List - Last Reconciled 02/10/25 by SADIQ Uribe- lorazepam 0.5 mg PO BID PRN 30 days ondansetron 8 mg PO Q12H PRN 15 days vit no.[id number] 27 mg iron- 800 mcg ( Vitamin) 1 tab PO DAILY sertraline 100 mg PO DAILY 90 days Tobacco use date assessed: 02/10/25 Dental Screening Dental Screen Date: 02/10/25 Did you have a dental visit in the last 12 months?: Yes Did you have a dental problem in the last 6 months where you did not have access to dental care?: No Was dental information given to patient?: Patient has dentist HPI r/s HPI Details Chief Complaint The patient presents for a follow-up visit for dyslipidemia. History of Present Illness The patient is a 39-year-old female presenting for a follow-up for dyslipidemia. She has a history of dyslipidemia and is currently at approximately 14 to 15 weeks of gestation. She is not on any statin medications and is taking only vitamins and Zofran for nausea. Social History - Diet: The patient was advised to eat a low-fat diet and monitor her overall diet. Health Maintenance - Healthy lifestyle discussion: The patient was advised to eat a low-fat diet. Review of Systems - Gastrointestinal: Reports some nausea. - Cardiovascular: Denies chest pain. - Neurological: Denies headaches and dizziness. - Eyes: Denies blurred vision. Physical Exam General: Cooperative, healthy appearing, comfortable, no acute distress and well developed, obese Orientation: Patient oriented x3 Limitations: No limitations Head: Normal to inspection Ears: Hearing grossly normal bilaterally Nose: Normal external nose present Face and sinus: Normal facial exam Eyes: Appearance normal, both eyes and all related structures Neck: Normal visual inspection and Yes full ROM Respiratory: Normal respiratory effort and able to speak in complete sentences. Clear to auscultation bilaterally Cardiovascular: Regular rate and rhythm. Normal S1 and S2 GI: Normal to inspection. Soft to palpation and nontender Skin: No rashes or lesions noted Neuro: Patient oriented x3 Extremities: No edema, obese Results Plan 1. Dyslipidemia The patient has a history of dyslipidemia and is currently not on a statin due to . Cholesterol levels and blood counts will be rechecked. The patient was advised to follow a low-fat diet. A natural product, [place] bergamot, was mentioned as a possibility, but the patient was advised to consult her CHILD PROTECTIVE INVESTIGATOR regarding its safety during . 2. The patient is at approximately 14-15 weeks of gestation. She is taking vitamins. 3. Nausea In The patient is taking Zofran for nausea related to her . Discussion Notes I discussed with the patient her dyslipidemia in the context of her current . We will proceed with checking her cholesterol levels and blood counts. I advised her to maintain a low-fat diet. I mentioned the natural product [place] bergamot but informed her that I do not know if it is safe for and recommended she discuss it with her CHILD PROTECTIVE INVESTIGATOR. Patient Instructions - Plan to have lab work done to check your cholesterol levels and blood counts. - Continue to eat a low-fat diet. - You may ask your CHILD PROTECTIVE INVESTIGATOR about the safety of taking a natural product called [place] bergamot during . - Continue taking your vitamins and Zofran as needed for nausea. [facility] Medical History Fatty liver Family History Father Substance use disorder Mother No problems noted. Social History Housing: House Alcohol intake: current Alcohol intake frequency: holidays/special occasions only Patient Tobacco Use Status: Former Tobacco user Years Smoked: 5-6 years ago e-Cigarette/Vaping Use: Currently Using Second Hand Smoke Exposure: No Current occupational status: employed Current occupation: [employer] Current occupational exposures/hazards: No Cognitive needs: No Hearing needs: No Vision needs: No Questionnaire PHQ-9 Over the last 2 weeks, how often have you been bothered by any of the following problems? 1. Little interest or pleasure in doing things: not at all 2. Feeling down, depressed, or hopeless: not at all 3. Trouble falling or staying asleep, or sleeping too much: several days 4. Feeling tired or having little energy: several days 5. Poor appetite or overeating: several days 6. Feeling bad about yourself - or that you are a failure or have let yourself or your family down: not at all 7. Trouble concentrating on things, such as reading the newspaper or watching television: not at all 8. Moving or speaking so slowly that other people could have noticed. Or the opposite - being so fidgety or restless that you have been moving around a lot more than usual: not at all 9. Thoughts that you would be better off or of hurting yourself in some way: not at all Total score: 3 Source: Developed by Drs. Sanjeev Alas, Betty Riggs, Jose Alberto Jaramillo and colleagues, with an educational kyara from [employer]. Thrive Questionnaire Date Thrive assessed: 12/02/23 I am a: Patient What is your living situation today?: I have a steady place to live Within the past 12 months, did the food you bought not last and you didn't have the money to get more?: Never true Within the past 12 months, did you worry whether your food would run out before you got money to buy more?: Never true Do you have trouble paying for medicines?: No Do you have trouble getting transportation to medical appointments?: No Do you have trouble paying your heating and electricity bill?: No Do you have trouble taking care of your child, family member or friend?: No Do you have trouble with day-to-day activities such as bathing, preparing meals, shopping, managing finances, etc.?: No Are you currently unemployed and looking for a job?: No Are you interested in more education?: No Please select the resources that you would like help with: None Currently or been in a relationship where the following occur: No concerns reported THRIVE Score: 0 AUDIT C Alcohol Use Questionnaire (AUDIT-C) 1. How often do you have a drink containing alcohol?: Never Total Score: 0 KENNY-7 AMB Questionnaire KENNY-7 Date KENNY - 7 assessed: 02/10/25 Feeling nervous, anxious, or on edge: 0 = Not at all Not being able to stop or control worryin = Several days Worrying too much about different things: 1 = Several days Trouble relaxin = Not at all Being so restless that it is hard to sit still: 0 = Not at all Becoming easily annoyed or irritable: 1 = Several days Feeling afraid as if something awful might happen: 0 = Not at all Total KENNY-7 score (0-4 normal; 5-9 mild; 10-14 moderate; 15-21 severe): 3 Source: Developed by Drs. Sanjeev Alas, Betty Riggs, Jose Alberto Jaramillo and colleagues, with an educational kyara from [employer]. KENNY-7 Assessment Billing KENNY-7 Assessment Tool: KENNY-7 Assessment 23181 Physical exam (Primary Care) Vital Signs: Last Vital Signs Temp 97.9 F 02/10/25 16:23 Pulse 95 02/10/25 16:23 Resp 16 02/10/25 16:23 BP 110/70 02/10/25 16:23 Pulse Ox 97 02/10/25 16:23 Oxygen Delivery Method Room Air 02/10/25 16:23 BMI result Body Mass Index 36.4 Tobacco/Smoking Status: Tobacco use Status Tobacco use date assessed 02/10/25 02/10/25 16:26 Patient Tobacco Use Status Former Tobacco user 02/10/25 16:24 e-Cigarette/Vaping Use Currently Using 02/10/25 16:24 PHQ-9: PHQ-9 Score PHQ-9: Total score 3 02/10/25 16:43 Thrive Assessment: Date of Thrive Assessment Date Thrive assessed 12/02/23 02/10/25 16:24 Currently or been in a relationship where the following occur: No concerns reported Office Procedures Flu Questionnaire Does the patient have a severe egg allergy?: No Does the patient have severe life threatening allergies?: No Does the patient have a fever or illness today?: No Has the patient ever had Guillain-[place] Syndrome?: No Has the patient ever had any past reaction to a flu shot?: No Immunizations Fluarix [id number] (PF) 45 mcg (15 mcg x 3)/0.5 mL IM syringe Performing Provider: KELLIE Uribe [place] [facility] Administered by: Lacey Sweeney CMA on 02/10/25 16:42 Dose Route Admin Location Dispensed Lot Number Expiration Date NDC Gi Asst 0.5 mL IM Right Deltoid 0.5 mL [id number] 10/12/25 [id number] [email or web address] VIS Given Date VIS Provided VIS Publication Date 02/10/25 Single Vaccine 24 Eligibility Eligibility Date Funding Source Not [facility] Eligible 02/10/25 Private Coding Level of Care Code Est Pt Level 3 (84695) Diagnoses Dyslipidemia E78.5 High risk case management patient O09.90 Additional Codes KENNY-7 Assessment Billing - KENNY-7 Assessment Tool: KENNY-7 Assessment 72302 ([id number]) Assessment & Plan Assessment & Plan (1) Dyslipidemia: Code(s): E78.5 - Hyperlipidemia, unspecified Category: Medical (2) High risk case management patient: Code(s): O09.90 - Supervision of high risk , unspecified, unspecified trimester Category: Social Hx Plan . Orders: Orders Complete Blood Count Auto Diff Today E78.5 - Hyperlipidemia, unspecified Comprehensive [place]. Panel Fast Today E78.5 - Hyperlipidemia, unspecified TSH reflex Free T4 Today E78.5 - Hyperlipidemia, unspecified Lipid Panel Today E78.5 - Hyperlipidemia, unspecified Influenza [id number] Immunization Today Z23 - Encounter for immunization UA CC w/rflx Micro + Cult Today E78.5 - Hyperlipidemia, unspecified Referrals Genetics Referral O09.90 - Supervision of high risk , unspecified, unspecified trimester
== END 2025-02-10 17:00 | disposition home or self-care (01) ==
LOC: HO.HMCC 16:22
PROVIDERS: PCP Nurse Practitioner Family; Visit Provider Nurse Practitioner Family
DX: E78.5 Hyperlipidemia, unspecified (principal); O09.90 Supervision of high risk pregnancy, unspecified, unspecified trimester; Z23 Encounter for immunization

== ENCOUNTER → 2025-02-10 16:21 | Outpatient (BNVA) | payer BC, SELFPAY | PROVIDERS: PCP Nurse Practitioner Family; Visit Provider Nurse Practitioner Family | DX: O09.92 Supervision of high risk pregnancy, unspecified, second trimester (principal); O26.892 Other specified pregnancy related conditions, second trimester; E78.5 Hyperlipidemia, unspecified; R11.0 Nausea; Z23 Encounter for immunization; Z3A.00 Weeks of gestation of pregnancy not specified | CPT/HCPCS: 90471; 90656; 96127 ==

== ENCOUNTER 2025-04-14 11:15 | Outpatient (REF) | payer BC, SELFPAY ==
--- OUTSIDE RECORDS SUMMARY | 2025-04-14 12:49 | XMS_ITS | Patient Health Record ---
Author Organization [facility] [address] Address [address] [place] [address] Care Team Providers Care Mechanical Unit Repairer Name Role Phone LIDIA MORIN Unavailable [phone] Allergies No Known Allergies Reason For Referral No Information Medications Medication SIG (Take, Route, Frequency, Duration) Notes Start Date End Date Status Sertraline HCl 100 MG Tablet 1 tablet Orally Once a day A ctive Vitamin C 1000 MG Tablet 1 tablet Orally Once a day Active Fish Oil 500 MG Capsule 1 capsule Orally Twice a day Active Vitamin D 50 MCG (1999 [place]) Tablet 1 tablet Orally Once a day A ctive Ativan 0.5 MG Tablet 1 tablet at bedtime as needed Orally Once a day Active Active ZyrTEC Allergy 10 MG Tablet 1 tablet Orally Once a day A ctive Social History Tobacco Use: Social History Observation Description Date Details (start date - stop date) Current Smoker NA - NA Social History Tobacco Use: Social Info Question Answer Notes Tobacco Use/Smoking Are you a current smoker How often do you smoke cigarettes? every day How many cigarettes a day do you smoke? 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: occasion tob: vape regularly, used to smoke, quit 5 years ago, about 1/4-1/2 PPD for about 6-7 years drug: denies she is a nurse practioner alcohol: occasion tob: vape regularly, used to smoke, quit 5 years ago, about 1/4-1/2 PPD for about 6-7 years drug: denies Problems Problem Type SNOMED Code ICD Code Onset Dates Problem Status W/U Status Risk Notes Problem Obesity (078976935) Other obesity (E66.8) Active confirmed Problem Hyperlipidaemia (18317781) Hyperlipidemia, unspecified hyperlipidemia type (E78.5) Active confirmed Problem Anxiety (15288851) Anxiety (F41.9) Active confi rmed Problem Vitamin D deficiency (40555089) Vitamin D deficiency (E55.9) Active confirmed Problem Fatty liver (649611794) Fatty liver disease, nonalcoholic (K76.0) Active confirmed Problem Obese class II (486402143172571) BMI 35.0-35.9,adult (Z68.35) Active confirmed Problem Obese class II (866520430323392) BMI 36.0-36.9,adult (Z68.36) Active confirmed Problem Adult-onset obesity (125332410) Adult-onset obesity (E66.9) Active confirmed Problem Difficulty sleeping (106798700) Difficulty sleeping (G47.9) Active confirmed Plan Of Treatment Pending Test Test Name Order Date HEMOGLOBIN A1c 08/09/2022 INSULIN 08/09/2022 Insurance Providers Payer Name Payer Address Payer Phone Subscriber Number Group Number Insured Name Patient Relationship to Insured Coverage Start Date Coverage End Date [facility] [address] [place] [address] [id number] Shani Alvarado Self - patient is the insured Medications Administered Medication Instructions Date of Administration Dosage Notes MICC B12 INJECTION 08/09/2022 lt # [id number] MICC B12 INJECTION 10/30/2022 Medical (General) History Medical History History ICD Code allergic rhinitis HLD anxiety Fatty Liver Surgical History Surgery Date(Month/Year) lymph node bx bilateral inguinal surgery 1998 [place]
[2025-04-14 16:18] LABS: MANUAL DIFF FLAG NO
[2025-04-14 16:42] LABS: Hematocrit 35.2 % (37.0-47.0); Hemoglobin 11.5 g/dl (12.0-16.0); Imm Gran Abs Auto 0.10 X10*3/uL (0.00-0.03); Imm Gran Pct Auto 0.8 % (0.0-0.4); Lymphocytes Absolute Auto 1.7 X10*3/uL (1.2-4.9); Mean Corpuscular HGB Conc 32.7 g/dl (31.0-35.0); Mean Corpuscular Hemoglobin 29.4 pg (27.0-33.0); Mean Corpuscular Volume 90.0 fL (80.0-98.0); NRBC Abs Auto 0.000 X10*3/uL (0.0-0.012); NRBC Pct Auto 0.0 /100WBC (0.0-0.2); Platelet Count 354 X10*3/uL (160-400); Red Blood Count 3.91 X10*6/uL (4.20-5.50); White Blood Count 11.9 X10*3/uL (4.8-10.8)
[2025-04-14 17:19] LABS: Appearance Urine Turbid; Glucose Urine UA Negative (Negative); PH 6.0 (5.0-9.0); Specific Gravity - Urine 1.025 (1.005-1.025)
[2025-04-14 17:54] LABS: Alanine Aminotransferase 26 U/L (0-31); Albumin Level 3.7 g/dL (3.5-5.0); Alkaline Phosphatase 89 U/L (39-117); Anion Gap 13 (12-20); Aspartate Amino Transferase 27 U/L (5-31); Blood Urea Nitrogen 9 mg/dL (9-16); Calcium 9.1 mg/dL (8.4-10.2); Carbon Dioxide 21 mmol/L (22-29); Chloride 108 mmol/L (96-108); Cholesterol 226 mg/dL (<200); Estimated Glomerular Filt Rate > 60; HDL Cholesterol 50 mg/dL (>40); Potassium 3.9 mmol/L (3.3-5.1); Sodium 138 mmol/L (135-145); Total Protein 6.8 g/dL (6.5-8.0); Triglycerides 386 mg/dL (<150)
== END 2025-04-14 11:16 | disposition home or self-care (01) ==
LOC: HO.WFDLDS 11:15
PROVIDERS: Visit Provider Nurse Practitioner Family
DX: E78.5 Hyperlipidemia, unspecified (principal)
CPT/HCPCS: 36415; 80053; 80061; 81003; 84443; 85025